=== PATIENT | male | born 1995 | race Caucasian/White ===

== ENCOUNTER → 2018-11-02 | Outpatient (CLI) | payer OTHER | LOC: COL.RAD 09:33 | DX: K21.9 Gastro-esophageal reflux disease without esophagitis (principal) ==

== ENCOUNTER → 2020-01-13 | Outpatient (REF) | payer OTHER | LOC: COL.ER 00:29 | DX: Z02.83 Encounter for blood-alcohol and blood-drug test (principal) ==